=== PATIENT | female | born 1945 | race Caucasian/White ===

== ENCOUNTER → 2017-12-17 10:53 | Outpatient (CLI) | payer MEDICARE, SELFPAY ==
--- NOTE | 2017-12-17 11:00 | RAD_ITS ---
STUDY: X-RAY - LUMBAR SPINE REASON FOR EXAM: Female, 72 years old. Low back pain. TECHNIQUE: 5 view(s) of the lumbar spine were obtained. COMPARISON: 03/10/2007 FINDINGS: Normal lumbar lordosis. Mild grade 1 L4 on L5 anterolisthesis. Mild dextroscoliosis centered at L3. No vertebral body fracture. No pars defect. Moderate loss of height with prominent endplate change and spur formation noted within the intervertebral disc spaces throughout the lumbar spine. Mild to moderate degenerative change of facet joints noted from L3 through S1. The soft tissue structures are unremarkable. Calcified gallstones are incidentally noted within the gallbladder. RAD/L/S Spine Min 4 Views IMPRESSION: Moderate multilevel degenerative disc and facet disease of the lumbar spine. Electronically Signed: Ayden Reece MD at 5:00 EDT Tel , Service support ,
[2017-12-17 12:24] LABS: ALB/GLOB Ratio 0.8 RATIO (0.9-2.4); AST(SGOT) 21 U/L (15-37); Alanine Aminotransfer ALT/SGPT 25 U/L (13-56); Albumin, Serum 3.8 g/dL (3.2-5.0); Alkaline Phosphatase 92 U/L (45-117); Anion Gap 6 (5-15); BUN 14 mg/dL (7-18); BUN/Creat Ratio 15.2 RATIO (10-20); Calcium,Total 10.7 mg/dL (8.5-10.1); Chloride 102 mmol/L (98-107); Cholesterol 203 mg/dL (200); Creatinine, Serum 0.92 mg/dL (0.55-1.02); EST Glomerular Filtration Rate 64 mL/min (>60); Est Glom Filt Rate - Afr Amer 77 mL/min (>60); Globulin 4.9 g/dL (2.2-4.2); Glucose 99 mg/dL (74-106); High Density Lipoprotein 52 mg/dL; Potassium 5.3 mmol/L (3.5-5.1); Protein, Total 8.7 g/dL (6.4-8.2); Sodium Level 139 mmol/L (136-145); Triglycerides 366 mg/dL; Very Low Density Lipoprotein 73 mg/dL (5-40)
== END ==
PROVIDERS: Family Provider Family Medicine; PCP Family Medicine; Visit Provider Family Medicine
DX: M54.5 Low back pain (principal); E11.65 Type 2 diabetes mellitus with hyperglycemia
CPT/HCPCS: 36415; 72110; 80053; 80061

== ENCOUNTER → 2017-12-24 11:23 | Outpatient (CLI) | payer MEDICARE, SELFPAY ==
[2017-12-25 10:41] LABS: PTHIN 43.4 pg/mL (18.4-80.1)
== END ==
PROVIDERS: Family Provider Family Medicine; PCP Family Medicine; Visit Provider Family Medicine
DX: E83.52 Hypercalcemia (principal)
CPT/HCPCS: 36415; 82330; 83970

== ENCOUNTER 2018-01-08 13:00 | Outpatient (RCR) | payer MEDICARE, SELFPAY ==
--- NOTE | 2017-12-24 11:24 | HP.PTEVAL_ITS ---
Patient's Visit Information SYLVIA EMMANUEL is a 72 year old F referred to Physical Therapy by Abel Tariq with a diagnosis of L SI dysfunction. Date of Evaluation: 12/24/17 Physical Therapist: Jet Diaz DPT, OC - Visit Plan Frequency: 3x /Week Duration: 4-6 Weeks Plan: 3x/week for 3-6 weeks for. 1. Neutral spine positioning and avoid aggravating activities education. 2. LB flexion bias program progressing to DLS/postural strength, HS stretches. 3. ES and ice as needed for pain. - Subjective Subjective: L LBP and posterior hip. Been there for two weeks and is a familiar pain. Was riding mower in a rough yard may have aggravated as [place] had [place] in [place] 13 weeks doing pool ex adn had no problems immediately prior. 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 Getting up the next day really hurt adn hard to walk to the bathroom, [place] like L leg would give out but it did not. No falls. No AD needed regularly, used cane a few times. Unchanging intensity. Sleep is hard as moving in bed is painful, getting out of bed and into bed is painful. Pain is there sitting but not as bad. Not employed. Doing basic ADLs abut they are painful, lives alone , with 7 cats. Steps are OK if she holds onto railings. Has to place things ont he next step and climb them. Avoids gardening this spring as she had to hire someone this year to do it. 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 Picking up sticks and pulliing weeds is hard due to bending. - Pain L LBP Pain Intensity (Out of 10): 8 Pain Intensity Range: 5, 10 Comment: stadning is worse - Objective Walks gingerly and slow, stiff in the spine avoiding spinal movement. Trasnfers using UE to take pressure off LB arising from chair and painful grimaces with shear forces to LB on mat transfers but I. LB AROM L SB and ext max deficits and painful L LB, R SB min deficits, flexion slow but min deficits. reflexes 2/3 patella and achilles. HS and gastroc mod tight. Sensation LE WNL to my gorss checks today of light touch. Strength LE 4/5 without myotomal abnormalities. + L slump and SLR for LBP. - Goals Goal 1:: Pain abolished at rest Goal Time Frame: 2-4 Weeks Goal 2:: Patient have only mod deficits in spinal ROM and painfree Goal Time Frame: 4-6 Weeks Goal 3:: Sleep and transfer at night without pain. Goal Time Frame: 4-6 Weeks Goal 4:: patient feel able to get back out to gardens without increased pain. Goal Time Frame: 4-6 Weeks Goal 5:: I approp HEP to minimize future problems. Goal Time Frame: 4-6 Weeks - Rehabilitation Potential Physical Therapy Diagnosis: L LBP SI vs DDD Rehabilitation Potential: Fair - Anticipated Interventions Patient/Client Instruction: Educate patient on: Condition, Plan of Care For the Purpose of:: To decrease pain, To increase ROM, To decrease level of supervision to perform tasks Therapeutic Exercise to Include: Strength training, Postural training, Flexibilty training, Gait and locomotor training, Passive ROM, Active ROM For the Purpose of:: To decrease pain, To improve performance and independence with ADL's, To improve ability of physical actions for home/community/work/ leisure, To improve gait and locomotor functions TENS: Yes Cryotherapy (ice pack, ice massage): Yes For the Purpose of:: To decrease pain, To decrease swelling/inflammation Thank you for the opportunity to evaluate your patient. For Medicare and Medicare HMO plans, please review the plan of care and approve it. It will need to be FAXED BACK to us at [phone] for Medicare purposes. Please let me know if there are questions or concerns regarding this plan of care. Physician Signature: Date:
--- NOTE | 2018-01-08 13:00 | DT_ITS ---
This patient was seen during an EMR downtime January 04, 2018 - January 11, 2018. This patient may have a combination of paper and electronic documentation or all paper documentation. All documentation is viewable within the e-chart portion of [facility] [employer] for each patient visit.
--- NOTE | 2018-01-19 16:27 | HP.PTDCNRP_ITS ---
HP - Discharge Summary (1) - Patient Information SYLVIA EMMANUEL was seen in my office for initial evaluation on 12/24/17. The following Plan of Care was established for this patient: Initial Frequency: 3x /Week Initial Duration: 4-6 Weeks - Anticipated Interventions Patient/Client Instruction: Educate patient on: Condition, Plan of Care For the Purpose of:: To decrease pain, To increase ROM, To decrease level of supervision to perform tasks Therapeutic Exercise to Include: Strength training, Postural training, Flexibilty training, Gait and locomotor training, Passive ROM, Active ROM For the Purpose of:: To decrease pain, To improve performance and independence with ADL's, To improve ability of physical actions for home/community/work/ leisure, To improve gait and locomotor functions TENS: Yes Cryotherapy (ice pack, ice massage): Yes For the Purpose of:: To decrease pain, To decrease swelling/inflammation This patient was last seen in our office 01/08/18. Pertinent comments regarding their Physical therapy will appear below: Pt seen 5 visits through 01/08 for instruct and progression to HEP for LBP. She was showing improvements even stating that I feel like we have worked my original pain out After 01/08 she cancelled all visits in favor of doing her exercises at home. Therefore I will discharge her without official recheck at her request. At this point I will be discontinuing this patient from physical therapy. I would be happy to see this patient again in the future if found appropriate by the physician. Thank you! Jet Diaz, DPT, OC
== END 2018-01-08 19:00 | disposition home or self-care (01) ==
LOC: PT 13:00
PROVIDERS: Family Provider Family Medicine; PCP Family Medicine; Visit Provider Family Medicine
DX: M46.1 Sacroiliitis, not elsewhere classified (principal)
CPT/HCPCS: 97014; 97110; 97162; G0283

== ENCOUNTER → 2018-04-06 15:23 | Outpatient (CLI) | payer MEDICARE, SELFPAY | PROVIDERS: Family Provider Family Medicine; PCP Family Medicine; Visit Provider Nurse Practitioner Adult Health | DX: N76.0 Acute vaginitis (principal) | CPT/HCPCS: 87070; 87205 ==

== ENCOUNTER → 2018-07-20 10:24 | Outpatient (CLI) | payer MEDICARE, SELFPAY ==
[2018-07-20 12:37] LABS: Anion Gap 10 (5-15); BUN 19 mg/dL (7-18); BUN/Creat Ratio 19.5 RATIO (10-20); Calcium,Total 10.6 mg/dL (8.5-10.1); Chloride 103 mmol/L (98-107); Cholesterol 239 mg/dL (200); Creatinine, Serum 0.97 mg/dL (0.55-1.02); EST Glomerular Filtration Rate 60 mL/min (>60); Est Glom Filt Rate - Afr Amer 72 mL/min (>60); Glucose 129 mg/dL (74-106); High Density Lipoprotein 45 mg/dL; Potassium 4.9 mmol/L (3.5-5.1); Sodium Level 141 mmol/L (136-145); Triglycerides 402 mg/dL
[2018-07-20 12:40] LABS: Vitamin D,25 Hydroxy 41.2 ng/mL (29.95-100.01)
--- OUTSIDE RECORDS SUMMARY | 2018-10-21 18:35 | XMS RPT_ITS ---
:1945 Author Organization [facility] Care Team Providers Name Role Phone Abel Tariq Attending Unavailable Abel Tariq Primary Care Unavailable Aditi Nixon Attending Unavailable Aditi Nixon Referring Unavailable Chandni, Abel Primary Care Unavailable Abel Tariq Attending Unavailable Chandni, Abel Primary Care Unavailable Chandni, Abel Attending Unavailable Chandni, Abel Primary Care Unavailable Abel Tariq Referring Unavailable Abel Tariq Attending Unavailable Chandni, Abel Referring Unavailable Chandni, Christopal Primary Care Unavailable PROBLEMS PROBLEMS DATE TYPE CONDITION / CODE ATTENDING STATUS SOURCE 04/06/2018 Unknown N76.0 - Acute Aditi Nixon Active [facility] vaginitis / Community N76.0(ICD-10) Hospital Repository 01/28/2018 Unknown M46.1 - [place], Active [facility] Sacroiliitis, not [facility] elsewhere Hospital classified / Repository M46.1(ICD-10) 12/17/2017 Unknown M54.5 - Low back [place], Active [facility] pain / [facility] M54.5(ICD-10) Hospital Repository 12/17/2017 Unknown E11.65 - Type 2 [place], Active [facility] diabetes mellitus [facility] with hyperglycemia Hospital / E11.65(ICD-10) Repository PROCEDURES PROCEDURES No Procedure Records FoundRESULTS RESULTS BASIC METABOLIC Collected: 07/20/2018 Status: F Source: BE AZAR (MEL) 10:26 AM [facility] REPOSITORY Order Comment: Order Date: 03/30/18 Order Info: [id number] - BMP Order Info: 86960-8 - LIPID TYPE CODE TESTS RESULT OUT OF RANGE REFERENCE UNITS LAB L501.0100 74-106 mg/dL High GLU 129 Result Comment: Fasting Glucose result greater than or equal to 126 mg/dL suggests DIABETES MELLITUS per A.D.A. criteria. Please note revised GLUCOSE reference range effective 2017. LAB L501.1000 7-18 mg/dL High BUN 19 LAB L501.1100 0.55-1.02 mg/dL Normal CREAT,SERUM 0.97 Result Comment: The validity of the calculated GFR AND GFRAA in patients over 70 years has not been determined. Clinical correlation is essential. LAB L501.1110 >60 mL/min Normal EST GFR 60 Result Comment: Non- GFR Calc LAB L501.1115 >60 mL/min Normal EST GFR - AA 72 Result Comment: GFR Calc LAB L501.1300 10-20 RATIO Normal BUN/CRE 19.5 LAB L501.2200 8.5-10.1 mg/dL High CA 10.6 LAB L501.5300 136-145 mmol/L NA Normal 141 LAB L501.5600 3.5-5.1 mmol/L K Normal 4.9 LAB L501.5900 98-107 mmol/L CL Normal 103 LAB L501.6100 21.0-32.0 mmol/L Normal CO2 28.0 LAB L501.6200 5-15 Normal GAP 10 Performed By: #### L500.2500, L500.4100, L506.1000 #### [facility] [address] [place], [address] LIPID PROFILE Collected: 07/20/2018 Status: F Source: BE 10:26 AM [facility] REPOSITORY Order Comment: Order Date: 03/30/18 Order Info: [id number] - BMP Order Info: 13358-5 - LIPID TYPE CODE TESTS RESULT OUT OF RANGE REFERENCE UNITS LAB L501.4900 200 mg/dL High CHOL 239 Result Comment: <200 mg/dL Desirable 200-240 mg/dL Borderline >240 mg/dL High Risk LAB L501.5000 mg/dL High TRIG 402 Result Comment: The drugs N-Acetylcysteine and Metamizole may falsely depress this assay. TRIGLYCERIDE IS GREATER THAN 400 mg/dL. LDL RESULT IS INVALID AND WILL NOT BE REPORTED. Serum Triglycerides Reference Interval Normal <150 mg/dL Borderline high 150 - 199 mg/dL High 200 - 499 mg/dL Very High > or = 500 mg/dL LAB L501.6400 mg/dL Normal HDL 45 Result Comment: The drugs N-Acetylcysteine and Metamizole may falsely depress this assay. Reference Range HDL <40 mg/dL Low HDL Cholesterol HDL >or= 60 mg/dL High HDL Cholesterol LAB L501.6500 0-130 mg/dL Test Normal not performed LDL LAB L501.6600 5-40 mg/dL Test Normal not performed VLDL Performed By: #### L500.2500, L500.4100, L506.1000 #### [facility] [address] [place], [place], [address] VITAMIN D,25 HYDROXY Collected: 07/20/2018 Status: F Source: BE 10:26 AM [facility] REPOSITORY Order Comment: Order Date: 03/30/18 Order Info: 73750-1 - VITD25 TYPE CODE TESTS RESULT OUT OF RANGE REFERENCE UNITS LAB L506.1000 29.95-100.01 ng/mL Normal Vitamin D 41.2 25-OH Result Comment: Vitamin D 25(OH) Status Range Deficiency <20 ng/mL (50nmol/L) Insuffciency 20 - 30 ng/mL (50 - 75 nmol/L) Sufficiency 30 - 100 ng/mL (75 - 250 nmol/L) Toxicity >100 ng/mL (>250 nmol/L) Performed By: #### L500.2500, L500.4100, L506.1000 #### [facility] [address] [place], [address] Observed: 04/06/2018 Status: F Source: BE CULTURE, GENITAL 2:30 PM [facility] COMPREHENSIVE REPOSITORY Gram Stain Gram Stain 1+ Epithelial cells 3+ Gram positive rods 2+ Gram negative rods No Gram negative diplococci Gent Cult Comp Normal vaginal lesly isolated. No yeast, Gardnerella, Neisseria or beta-hemolytic Streptococcus isolated. 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, [address] DOWNTIME REPORT Observed: 01/21/2018 Status: F Source: CLUBB 12:11 PM [facility] Medical Records Department [address] [place] [address] Downtime Report MR#: [id number] Acct: [id number] Name: SYLVIA EMMANUEL Rep #: [id number] : 1945 72 From: Willie Mishra PCP: Abel Tariq MD Status: REG RCR This patient was seen during an EMR downtime January 04, 2018 - January 11, 2018. This patient may have a combination of paper and electronic documentation or all paper documentation. All documentation is viewable within the e-chart portion of [employer] for each patient visit. INITAL EVALUATION (1) Observed: 12/29/2017 Status: F Source: CLUBB - PT 9:[address] [facility] Physical [facility] [address] [place] [address] Fax REHABILITATION SERVICES INITIAL EVALUATION MR#: [id number] Acct: [id number] Name: SYLVIA EMMANUEL Rep #: [id number] : 1945 72 From: Jet Diaz DPT, OCS, CSCS Referring Dr.: Abel Tariq MD Status: REG RCR Insurance: [facility] MEDICARE PPO SELF PAY INSURANCE Patient's Visit Information SYLVIA EMMANUEL is a 72 year old F referred to Physical Therapy by Abel Tariq with a diagnosis of L SI dysfunction. Date of Evaluation: 12/24/17 Physical Therapist: Jet Diaz DPT, OC - Visit Plan Frequency: 3x /Week Duration: 4-6 Weeks Plan: 3x/week for 3-6 weeks for. 1. Neutral spine positioning and avoid aggravating activities education. 2. LB flexion bias program progressing to DLS/postural strength, HS stretches. 3. ES and ice as needed for pain. - Subjective Subjective: L LBP and posterior hip. Been there for two weeks and is a familiar pain. Was riding mower in a rough yard may have aggravated as she had been in [place] for 13 weeks doing pool ex adn had no problems immediately prior. 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 Getting up the next day really hurt adn hard to walk to the bathroom, [place] like L leg would give out but it did not. No falls. No AD needed regularly, used cane a few times. Unchanging intensity. Sleep is hard as moving in bed is painful, getting out of bed and into bed is painful. Pain is there sitting but not as bad. Not employed. Doing basic ADLs abut they are painful, lives alone, with 7 cats. Steps are OK if she holds onto railings. Has to place things ont he next step and climb them. Avoids gardening this spring as she had to hire someone this year to do it. 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 Picking up sticks and pulliing weeds is hard due to bending. - Pain L LBP Pain Intensity (Out of 10): 8 Pain Intensity Range: 5, 10 Comment: stadning is worse - Objective Walks gingerly and slow, stiff in the spine avoiding spinal movement. Trasnfers using UE to take pressure off LB arising from chair and painful grimaces with shear forces to LB on mat transfers but I. LB AROM L SB and ext max deficits and painful L LB, R SB min deficits, flexion slow but min deficits. reflexes 2/3 patella and achilles. HS and gastroc mod tight. Sensation LE WNL to my gorss checks today of light touch. Strength LE 4/5 without myotomal abnormalities. + L slump and SLR for LBP. - Goals Goal 1:: Pain abolished at rest Goal Time Frame: 2-4 Weeks Goal 2:: Patient have only mod deficits in spinal ROM and painfree Goal Time Frame: 4-6 Weeks Goal 3:: Sleep and transfer at night without pain. Goal Time Frame: 4-6 Weeks Goal 4:: patient feel able to get back out to gardens without increased pain. Goal Time Frame: 4-6 Weeks Goal 5:: I approp HEP to minimize future problems. Goal Time Frame: 4-6 Weeks - Rehabilitation Potential Physical Therapy Diagnosis: L LBP SI vs DDD Rehabilitation Potential: Fair - Anticipated Interventions Patient/Client Instruction: Educate patient on: Condition, Plan of Care For the Purpose of:: To decrease pain, To increase ROM, To decrease level of supervision to perform tasks Therapeutic Exercise to Include: Strength training, Postural training, Flexibilty training, Gait and locomotor training, Passive ROM, Active ROM For the Purpose of:: To decrease pain, To improve performance and independence with ADL's, To improve ability of physical actions for home/community/work/leisure, To improve gait and locomotor functions TENS: Yes Cryotherapy (ice pack, ice massage): Yes For the Purpose of:: To decrease pain, To decrease swelling/inflammation Thank you for the opportunity to evaluate your patient. For Medicare and Medicare HMO plans, please review the plan of care and approve it. It will need to be FAXED BACK to us at [phone] for Medicare purposes. Please let me know if there are questions or concerns regarding this plan of care. Physician Signature: Date: <Electronically signed by Jet HERNANDEZT, OCS, CSCS> 12/29/17 0903 CC: Abel Tariq MD EBG Signed For Medicare only, by signing this I certify the plan of care. Physicians Signature Date PTHIN Collected: 12/24/2017 Status: F Source: BE 11:24 AM [facility] REPOSITORY Order Comment: Order Date: 12/18/17 Order Info: [id number] - PTHIN TYPE CODE TESTS RESULT OUT OF RANGE REFERENCE UNITS LAB L509.1000 18.4-80.1 pg/mL Normal PTHIN 43.4 Performed By: #### L509.1000 #### [facility] [place], [address] CALCIUM IONIZED Collected: 12/24/2017 Status: F Source: BE 11:24 AM [facility] REPOSITORY TYPE CODE TESTS RESULT OUT OF REFERENCE UNITS RANGE LAB L3100.9600 4.5-5.6 mg/dL High IONIZED CA 5.7 Result Comment: Performed at: [facility] [id number] Machine Taper: Dakotah Caban PhD, Phone: [phone] Performed By: #### L3100.9600 #### [facility] (refer to report for specific site) refer to report for address and phone number COMPREHENSIVE METABOLIC Collected: 12/17/2017 Status: F Source: BE [facility] 11:01 AM [facility] REPOSITORY Order Comment: Order Date: 12/17/17 Order Info: [id number] - CMP Order Info: 28070-6 - LIPID TYPE CODE TESTS RESULT OUT OF RANGE REFERENCE UNITS LAB L501.0100 74-106 mg/dL Normal GLU 99 Result Comment: Please note revised GLUCOSE reference range effective 2017. LAB L501.1000 7-18 mg/dL Normal BUN 14 LAB L501.1100 0.55-1.02 mg/dL Normal CREAT,SERUM 0.92 Result Comment: The validity of the calculated GFR AND GFRAA in patients over 70 years has not been determined. Clinical correlation is essential. LAB L501.1110 >60 mL/min Normal EST GFR 64 Result Comment: Non- GFR Calc LAB L501.1115 >60 mL/min Normal EST GFR - AA 77 Result Comment: GFR Calc LAB L501.1300 10-20 RATIO Normal BUN/CRE 15.2 LAB L501.1500 6.4-8.2 g/dL High T PROT 8.7 LAB L501.1800 3.2-5.0 g/dL Normal ALB 3.8 LAB L501.1950 2.2-4.2 g/dL High GLOB 4.9 LAB L501.2000 0.9-2.4 RATIO Low A/G 0.8 LAB L501.2200 8.5-10.1 mg/dL High CA 10.7 LAB L501.4100 15-37 U/L Normal AST 21 LAB L501.4305 45-117 U/L Normal ALK P 92 LAB L501.4405 13-56 U/L Normal ALT 25 LAB L501.4600 0.20-1.00 mg/dL T Normal BILI 0.60 LAB L501.5300 136-145 mmol/L NA Normal 139 LAB L501.5600 3.5-5.1 mmol/L High K 5.3 LAB L501.5900 98-107 mmol/L CL Normal 102 LAB L501.6100 21.0-32.0 mmol/L Normal CO2 31.0 LAB L501.6200 5-15 Normal GAP 6 Performed By: #### L500.4050, L500.4100 #### [facility] [address] [place], [address] LIPID PROFILE Collected: 12/17/2017 Status: F Source: BE 11:01 AM [facility] REPOSITORY Order Comment: Order Date: 12/17/17 Order Info: [id number] - CMP Order Info: [id number] - LIPID TYPE CODE TESTS RESULT OUT OF RANGE REFERENCE UNITS LAB L501.4900 200 mg/dL High CHOL 203 Result Comment: <200 mg/dL Desirable 200-240 mg/dL Borderline >240 mg/dL High Risk LAB L501.5000 mg/dL High TRIG 366 Result Comment: The drugs N-Acetylcysteine and Metamizole may falsely depress this assay. Serum Triglycerides Reference Interval Normal <150 mg/dL Borderline high 150 - 199 mg/dL High 200 - 499 mg/dL Very High > or = 500 mg/dL LAB L501.6400 mg/dL Normal HDL 52 Result Comment: The drugs N-Acetylcysteine and Metamizole may falsely depress this assay. Reference Range HDL <40 mg/dL Low HDL Cholesterol HDL >or= 60 mg/dL High HDL Cholesterol LAB L501.6500 0-130 mg/dL Normal LDL 78 LAB L501.6600 5-40 mg/dL High VLDL 73 Performed By: #### L500.4050, L500.4100 #### [facility] [address] [place], [address] L/S SPINE MIN 4 Observed: 12/17/2017 Status: F Source: BE VIEWS 11:00 AM [facility] REPOSITORY [facility] Imaging Services [address] [place] [address] L/S Spine Min 4 Views MR#: [id number] Acct: [id number] Name: SYLVIA EMMANUEL Rep #: [id number] : 1945 F 72 From: Ayden Reece MD PCP: Abel Tariq MD Status: REG CLI Study: L/S Spine Min 4 Views Date of Exam: 12/17/17 Exam# [id number] Ordering Dr: Alexander Tariq MD STUDY: X-RAY - LUMBAR SPINE REASON FOR EXAM: Female, 72 years old. Low back pain. TECHNIQUE: 5 view(s) of the lumbar spine were obtained. COMPARISON: 03/10/2007 FINDINGS: Normal lumbar lordosis. Mild grade 1 L4 on L5 anterolisthesis. Mild dextroscoliosis centered at L3. No vertebral body fracture. No pars defect. Moderate loss of height with prominent endplate change and spur formation noted within the intervertebral disc spaces throughout the lumbar spine. Mild to moderate degenerative change of facet joints noted from L3 through S1. The soft tissue structures are unremarkable. Calcified gallstones are incidentally noted within the gallbladder. RAD/L/S Spine Min 4 Views IMPRESSION: Moderate multilevel degenerative disc and facet disease of the lumbar spine. Electronically Signed: Ayden Reece MD at 5:00 EDT Tel , Service support , CC: Abel Tariq MD Unemployment Examiner: Signed ALLERGIES ALLERGIES No Allergies Records FoundENCOUNTERS ENCOUNTERS ADMIT/DISCHARGE ACCOUNT ADMITTING ENCOUNTER LOCATION SOURCE NUMBER CLASS 07/20/2018 [id number] Ambulatory [address] ing:MFPLAB Repository 04/06/2018 [id number] Ambulatory [facility] ing:LABSPEC Repository 01/08/2018/ [id number] Ambulatory [facility] ing:PT Repository 12/24/2017 [id number] Ambulatory [facility] ing:MFPLAB Repository 12/17/2017 [id number] Ambulatory [facility] 0 [facility] ing:MTLAB Repository PAYERS PAYERS ENCOUNTER GUARANTOR PAYER SUBSCRIBER SOURCE 07/20/2018 ROBER Valdez Primary SYLVIA [place] [id number] CR Insurance:ANTHEM TRINITY HEALTHERDOB: [place] MED[place] PPOPolicy [id number] [address]Tel: (330) Number: Repository [phone] () [id number] Date:[id number] [address] [place] [address] [id number]: 07/20/2018 Secondary NOT GIVENUNK [facility] Insurance:SELF PAY [facility] Number: Effective Repository Date:2018-07-20 04/06/2018 ROBER Valdez Primary SYLVIA [address] [id number] CR Insurance:ANTHRAZA JOHNSERDOB: [place] MEDICARE PPOPolicy [id number] [address]Tel: (330) Number: Repository [phone] () [id number] Date:[id number] [address] [place] [address] [id number]: 04/06/2018 Secondary NOT GIVENUNK Be Insurance:SELF PAY [facility] Number: Effective Repository Date:2018-04-06 01/08/2018 Rober Valdez Primary SYLVIA [address] [id number] CR Insurance:ANTHEM NESTORAFFERDOB: [place] MED[place] PPOPolicy [id number] Hospital 069[address]Eqi: [phone]) Number: Repository [phone] () [id number] Date:[id number] [address] [place] [address] [id number]: 01/08/2018 Secondary NOT GIVENUNK Be Insurance:SELF PAY [facility] Number: Effective Repository Date:2017-12-18 12/24/2017 Rober José Miguel Primary SYLVIA Lr [id number] CR Insurance:GABRIELLA LAFLEURB: [place] PPOPolicy [id number] Hospital [address]Sgo: (330) Number: Repository [phone] () [id number] Date:[id number] [address] [place] [address] 14815EZ: 12/24/2017 Secondary NOT GIVENUNK Be Insurance:SELF PAY [facility] Number: Effective Repository Date:2017-12-24 12/17/2017 Rober José Miguel Primary SYLVIA Lr [id number] CR Insurance:GABRIELLA LAFLEURB: [place] PPOPolicy [id number] Hospital [address]Ayl: (330) Number: Repository [phone] () [id number] Date:[id number] [address] [place] [address] [id number]: 12/17/2017 Secondary NOT GIVENUNK Be Insurance:SELF PAY [facility] Number: Effective Repository Date:2017-12-17
== END ==
PROVIDERS: Family Provider Family Medicine; PCP Family Medicine; Visit Provider Family Medicine
DX: E78.5 Hyperlipidemia, unspecified (principal); E55.9 Vitamin D deficiency, unspecified
CPT/HCPCS: 36415; 80048; 80061; 82306

== ENCOUNTER → 2019-03-08 12:10 | Outpatient (CLI) | payer MEDICARE, SELFPAY ==
[2019-03-08 14:09] LABS: Hematocrit 36.3 % (37-47); Hemoglobin 12.1 g/dL (12.0-15.0); Mean Corp Hgb Conc 33.3 g/dL (32-36); Mean Corpuscular Hgb 29.2 pg (27.0-32.0); Mean Corpuscular Volume 87.5 fL (81-99); Platelet Count 216 K/mm3 (150-450); RBC Distribution Width CV 13.5 % (11.6-14.6); RBC Distribution Width SD 42.8 fl (35.1-43.9); Red Blood Count 4.15 M/mm3 (4.2-5.4); White Blood Count 7.1 K/mm3 (4.4-11.0)
[2019-03-08 14:45] LABS: Vitamin B12 451 pg/mL (211-911); Vitamin D,25 Hydroxy 32.3 ng/mL (29.95-100.01)
[2019-03-08 14:51] LABS: ALB/GLOB Ratio 0.8 RATIO (0.9-2.4); AST(SGOT) 16 U/L (15-37); Alanine Aminotransfer ALT/SGPT 20 U/L (13-56); Albumin, Serum 3.7 g/dL (3.2-5.0); Alkaline Phosphatase 104 U/L (45-117); Anion Gap 9 (5-15); BUN 23 mg/dL (7-18); BUN/Creat Ratio 21.3 RATIO (10-20); Calcium,Total 10.3 mg/dL (8.5-10.1); Chloride 105 mmol/L (98-107); Cholesterol 210 mg/dL (200); Creatinine, Serum 1.08 mg/dL (0.55-1.02); EST Glomerular Filtration Rate 53 mL/min (>60); Est Glom Filt Rate - Afr Amer 64 mL/min (>60); Globulin 4.4 g/dL (2.2-4.2); Glucose 155 mg/dL (74-106); High Density Lipoprotein 40 mg/dL; Potassium 4.3 mmol/L (3.5-5.1); Protein, Total 8.1 g/dL (6.4-8.2); Sodium Level 137 mmol/L (136-145); Thyroid Stim Hormone (TSH) 2.17 uIU/mL (0.358-3.74); Triglycerides 385 mg/dL; Very Low Density Lipoprotein 77 mg/dL (5-40)
== END ==
PROVIDERS: Family Provider Family Medicine; PCP Family Medicine; Referring Provider Family Medicine; Visit Provider Family Medicine
DX: R53.83 Other fatigue (principal); E55.9 Vitamin D deficiency, unspecified
CPT/HCPCS: 36415; 80053; 80061; 82306; 82607; 84443; 85027

== ENCOUNTER → 2019-03-09 13:04 | Outpatient (CLI) | payer MEDICARE, SELFPAY ==
[2019-03-09 14:25] LABS: Magnesium 1.7 mg/dL (1.6-2.6); Phosphorus 3.7 mg/dL (2.5-4.9)
[2019-03-09 14:35] LABS: PTHIN 48.6 pg/mL (18.4-80.1)
== END ==
PROVIDERS: Family Provider Family Medicine; PCP Family Medicine; Referring Provider Family Medicine; Visit Provider Family Medicine
DX: E83.52 Hypercalcemia (principal)
CPT/HCPCS: 36415; 82330; 83735; 83970; 84100

== ENCOUNTER → 2019-04-13 08:49 | Outpatient (CLI) | payer MEDICARE, SELFPAY ==
--- NOTE | 2019-04-13 09:51 | BD_ITS ---
STUDY: DUAL ENERGY X-RAY ABSORPTIOMETRY / DXA REASON FOR EXAM: Female, 73 years old. The patient is postmenopausal. Loss of height. TECHNIQUE: Bone Mineral Density (BMD) measurements of lumbar spine and bilateral hips were obtained. COMPARISON: Comparison is made with prior study dated March 25, 2012. FINDINGS: Lumbar Spine (L1-L4): g/cm2 (1.463) / T-score (2.4) / Z-score (4.1) Findings are suggestive of normal bone density with a low fracture risk. Left Femur Total: g/cm2 (0.926) / T-score (-0.6) / Z-score (0.9) Left Femoral Neck: g/cm2 (0.980) / T-score (-0.4) / Z-score (1.4) Right Femur Total: g/cm2 (0.961) / T-score (-0.4) / Z-score (1.2) Right Femoral Neck: g/cm2 (1.004) / T-score (-0.2) / Z-score (1.5) The T-Scores on the most recent prior examination were: Lumbar Spine (L1-L4): There has been improvement of bone density since the previous examination. Left Femur Total: which represents a worsening of 9.1%. Right Femur Total: which represents a worsening of 10.5%. BD/Dexa Bone Density Study IMPRESSION: The patient is considered normal as outlined below according to World [employer] Organization (WHO) criteria with a low fracture risk. There has been worsening of bone density since the previous examination. Reference Information: The T-score is the number of standard deviations above or below the standard which is normal for young adults at their peak bone mineral density. The World Health Organization (WHO) interprets the T-scores as follows: Above -1 Normal bone density Between -1 and -2.5 Osteopenia Equal to / or below -2.5 Osteoporosis As a practical clinical guideline, osteopenia may be graded as follows: Mild -1 through -1.5 Moderate -1.6 through -2.0 Severe -2.1 through -2.4 The Z-score is the number of standard deviations above or below age-matched controls. A Z-score of less than -1.5 would be considered abnormal. References: 1. NIH Osteoporosis and Related Bone Diseases http://www.osteo.org 2. International Society for Clinical Densitometry http://www.iscd.org 3. National Osteoporosis Foundation http://www.nof.org Electronically Signed: Venancio Hanson, at 13:08 EDT , Service support ,
== END ==
PROVIDERS: Family Provider Family Medicine; PCP Family Medicine; Referring Provider Family Medicine; Visit Provider Family Medicine
DX: Z78.0 Asymptomatic menopausal state (principal)
CPT/HCPCS: 77080

== ENCOUNTER → 2020-04-24 11:13 | Outpatient (CLI) | payer MEDICARE, SELFPAY ==
[2020-04-24 12:56] LABS: ALB/GLOB Ratio 0.8 RATIO (0.9-2.4); AST(SGOT) 21 U/L (15-37); Alanine Aminotransfer ALT/SGPT 30 U/L (13-56); Albumin, Serum 3.6 g/dL (3.2-5.0); Alkaline Phosphatase 96 U/L (45-117); Anion Gap 9 (5-15); BUN 18 mg/dL (7-18); BUN/Creat Ratio 17.6 RATIO (10-20); Calcium,Total 10.2 mg/dL (8.5-10.1); Chloride 105 mmol/L (98-107); Creatinine, Serum 1.02 mg/dL (0.55-1.02); EST Glomerular Filtration Rate 56 mL/min (>60); Est Glom Filt Rate - Afr Amer 68 mL/min (>60); Globulin 4.3 g/dL (2.2-4.2); Glucose 141 mg/dL (74-106); Potassium 4.3 mmol/L (3.5-5.1); Protein, Total 7.9 g/dL (6.4-8.2); Sodium Level 139 mmol/L (136-145); Thyroid Stim Hormone (TSH) 1.43 uIU/mL (0.358-3.74)
== END ==
PROVIDERS: PCP Family Medicine; Referring Provider Family Medicine; Visit Provider Family Medicine
DX: E11.65 Type 2 diabetes mellitus with hyperglycemia (principal)
CPT/HCPCS: 36415; 80053; 84443

== ENCOUNTER → 2021-03-06 11:57 | Outpatient (CLI) | payer MEDICARE, SELFPAY ==
[2020-05-31 13:23] VITALS: BMI 31.8
[2021-03-06 16:08] LABS: ALB/GLOB Ratio 0.9 RATIO (0.9-2.4); AST(SGOT) 21 U/L (15-37); Alanine Aminotransfer ALT/SGPT 26 U/L (13-56); Albumin, Serum 3.8 g/dL (3.2-5.0); Alkaline Phosphatase 74 U/L (45-117); Anion Gap 7 (5-15); BUN 19 mg/dL (7-18); BUN/Creat Ratio 17.9 RATIO (10-20); Calcium,Total 10.2 mg/dL (8.5-10.1); Chloride 104 mmol/L (98-107); Cholesterol 215 mg/dL (200); Creatinine, Serum 1.06 mg/dL (0.55-1.02); EST Glomerular Filtration Rate 54 mL/min (>60); Est Glom Filt Rate - Afr Amer 65 mL/min (>60); Globulin 4.4 g/dL (2.2-4.2); Glucose 115 mg/dL (74-106); High Density Lipoprotein 47 mg/dL; Protein, Total 8.2 g/dL (6.4-8.2); Sodium Level 136 mmol/L (136-145); Triglycerides 391 mg/dL; Very Low Density Lipoprotein 78 mg/dL (5-40)
== END ==
PROVIDERS: PCP Family Medicine; Referring Provider Family Medicine; Visit Provider Family Medicine
DX: E11.65 Type 2 diabetes mellitus with hyperglycemia (principal)
CPT/HCPCS: 36415; 80053; 80061

== ENCOUNTER 2021-10-09 09:52 | Outpatient (CLI) | payer MEDICARE, SELFPAY ==
[2021-10-09 12:24] LABS: PTHIN 102.6 pg/mL (18.4-80.1)
[2021-10-09 12:31] LABS: Vitamin B12 493 pg/mL (211-911)
[2021-10-09 12:52] LABS: Anion Gap 8 (5-15); BUN 17 mg/dL (7-18); BUN/Creat Ratio 13.6 RATIO (10-20); Calcium,Total 10.3 mg/dL (8.5-10.1); Chloride 106 mmol/L (98-107); Cholesterol 215 mg/dL (200); Creatinine, Serum 1.25 mg/dL (0.55-1.02); EST Glomerular Filtration Rate 44 mL/min (>60); Est Glom Filt Rate - Afr Amer 54 mL/min (>60); Glucose 124 mg/dL (74-106); High Density Lipoprotein 46 mg/dL; Magnesium 1.4 mg/dL (1.6-2.6); Potassium 4.7 mmol/L (3.5-5.1); Sodium Level 137 mmol/L (136-145); Thyroid Stim Hormone (TSH) 2.82 uIU/mL (0.358-3.74); Triglycerides 557 mg/dL
== END 2021-10-09 23:59 | disposition home or self-care (01) ==
LOC: MFPLAB 09:53
PROVIDERS: PCP Family Medicine; Referring Provider Family Medicine; Visit Provider Family Medicine
DX: E83.52 Hypercalcemia (principal); E11.65 Type 2 diabetes mellitus with hyperglycemia; E11.40 Type 2 diabetes mellitus with diabetic neuropathy, unspecified
CPT/HCPCS: 36415; 80048; 80061; 82330; 82607; 83735; 83970; 84100; 84443

== ENCOUNTER → 2022-04-09 | Outpatient (CLI) | payer MEDICARE, SELFPAY ==
--- NOTE | 2022-04-09 09:59 | NM_ITS ---
CLINICAL: 76-year-old female with history of clinical hyperparathyroidism. 99m Tc SESTAMIBI DUAL PHASE PARATHYROID SCINTIGRAPHY COMPARISON: None available FINDINGS: Following the intravenous administration of 25.2 mCi of 99m Tc sestamibi, image acquisitions of the anterior neck at approximately 15 minutes and 3.0 hours post radiopharmaceutical provision reveal: 1. Immediate static blood pool acquisitions demonstrate distribution of the radiopharmaceutical in the right-left thyroid colloid of a U-shaped thyroid gland. 2. Delayed images depict persistent tracer concentration noted in the region of the inferior pole of the right thyroid bed with otherwise near complete washout of the radiotracer from the remaining right and visualized left thyroid colloid. NM/Parathyroid Scan IMPRESSION: 1. 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 Electronically Signed: Isael Landry, at 20:33 EDT ,
== END | disposition home or self-care (01) ==
LOC: NM 09:58
PROVIDERS: PCP Family Medicine; Referring Provider Family Medicine; Visit Provider Family Medicine
DX: E21.0 Primary hyperparathyroidism (principal)
CPT/HCPCS: 78070; A9500

== ENCOUNTER → 2022-04-14 | Outpatient (CLI) | payer MEDICARE, SELFPAY ==
[2022-04-14 12:37] LABS: PTHIN 68.5 pg/mL (18.4-80.1)
[2022-04-14 12:53] LABS: Vitamin D,25 Hydroxy 50.4 ng/mL
[2022-04-14 13:10] LABS: ALB/GLOB Ratio 0.9 RATIO (0.9-2.4); AST(SGOT) 17 U/L (15-37); Alanine Aminotransfer ALT/SGPT 24 U/L (13-56); Albumin, Serum 3.7 g/dL (3.2-5.0); Alkaline Phosphatase 82 U/L (45-117); Anion Gap 9 (5-15); BUN 18 mg/dL (7-18); BUN/Creat Ratio 14.2 RATIO (10-20); Calcium,Total 11.3 mg/dL (8.5-10.1); Chloride 104 mmol/L (98-107); Creatinine, Serum 1.27 mg/dL (0.55-1.02); EST Glomerular Filtration Rate 44 mL/min (>60); Est Glom Filt Rate - Afr Amer 53 mL/min (>60); Globulin 4.3 g/dL (2.2-4.2); Glucose 134 mg/dL (74-106); Potassium 5.2 mmol/L (3.5-5.1); Sodium Level 138 mmol/L (136-145); Thyroid Stim Hormone (TSH) 2.51 uIU/mL (0.358-3.74)
== END | disposition home or self-care (01) ==
LOC: MFPLAB 11:06
PROVIDERS: PCP Family Medicine; Visit Provider Family Medicine
DX: E11.65 Type 2 diabetes mellitus with hyperglycemia (principal); E21.0 Primary hyperparathyroidism
CPT/HCPCS: 36415; 80053; 82306; 82330; 83970; 84443